=== PATIENT | female | born 1995 | race Caucasian/White ===

== ENCOUNTER 2017-02-12 04:15 | Emergency (ER) | payer OTHER ==
[2017-02-12 04:09] LABS: URINE SOURCE CLEAN CATCH
[2017-02-12 04:11] LABS: URINE APPEARANCE CLEAR; URINE BLOOD NEG (NEG); URINE COLOR YELLOW; URINE GLUCOSE NEG (NORM); URINE KETONE NEG (NEG); URINE LEUKOCYTE ESTERASE NEG (NEG); URINE NITRATE NEG (NEG); URINE PH 5.5 (5-8); URINE PROTEIN NEG (NEG); URINE SPECIFIC GRAVITY >=1.030 (1.003-1.035); URINE UROBILINOGEN 0.2 MG/DL (NORM)
[2017-02-12 04:14] LABS: MICRO INDICATED? NO; URINE BILIRUBIN NEG (NEG)
[~2017-02-12 04:15] MED LIST: ACYCLOVIR PO; AMOXICILLIN500 M1 PO; AUGMENTIN PO; BACTRIM DS TABL1 TA1 PO; BENTYL10 MG PO; CIPRO PO; DICLOFENAC PO; GEODON20 MG PO; NO MEDICATIONS; VIBRAMYCIN100 M1 DOB
[2017-02-13 20:33] LABS: CHLAMYDIA TRACH Not Detected (Not Detected); N GONOR Not Detected (Not Detected)
== END 2017-02-12 04:43 | disposition home or self-care (01) ==
LOC: SED 04:15
PROVIDERS: Emergency Medicine
DX: N72 Inflammatory disease of cervix uteri (principal)
CPT/HCPCS: 81003; 84703; 87491; 87591; 87808; 87905; 96372; 99284; J0696

== ENCOUNTER 2017-05-14 03:14 | Emergency (ER) | payer OTHER ==
[~2017-05-14] VITALS: Ht 162.6 cm; Wt 59.0 kg
--- NOTE | ~2017-05-14 | CR63 ---
[facility]. [facility] A Service of [place] [facility] RADIOLOGY TEXT RESULTS PATIENT: MOLLY SAUCEDO LOCATION: SED : [birth year] UNIT #: [id number] AGE: [address]: Geraldo Vidales MD SEX: F ORDER DR: [id number] [place] [id number] E MR#: [id number] Acc #: [id number] NAME: MOLLY SAUCEDO : 1995 SEX: F STUDY DATE/TIME: 05/14/2017 04:41 UNIT: SED ROOM: STUDY DESCRIPTION: CR Chest 2 View Attending Physician: Geraldo Vidales M.D. Ordering Physician: Geraldo Vidales M.D. Primary Care Physician: John Lewis Aprn MEDICAL IMAGING REPORT This report is preliminary unless electronic signature is present. EXAM Chest x-ray 05/14/2017 at 04:41. INDICATIONS Left side chest pain that started tonight. FINDINGS PA and lateral examination of the chest upright shows a good expansion of the parenchyma with a normal distribution of the pulmonary vascularity. There is no indication of congestion, effusion, infiltrate, tumor, or nodular density. The pleural reflections and diaphragmatic contours are normal. The cardiac silhouette and mediastinal anatomy is within normal limits. IMPRESSION Normal chest. Dictated by... Jace Aguilar Jr., M.D. THIS IS AN ELECTRONICALLY VERIFIED REPORT Jace Aguilar Jr., M.D. at 05/14/2017 8:15 PM RLK/prerna TD: 05/14/2017 12:12 JOB #: [id number] MEDICAL IMAGING REPORT Page 1 of 1
[2017-05-14] MEDS ORDERED: NO MEDICATIONS (03:26)
[2017-05-14 03:55] LABS: URINE SOURCE CLEAN CATCH
[2017-05-14 03:58] LABS: URINE APPEARANCE CLEAR; URINE BILIRUBIN NEG (NEG); URINE BLOOD NEG (NEG); URINE COLOR YELLOW; URINE GLUCOSE NEG (NORM); URINE KETONE NEG (NEG); URINE LEUKOCYTE ESTERASE NEG (NEG); URINE NITRATE NEG (NEG); URINE PH 5.5 (5-8); URINE PROTEIN NEG (NEG); URINE SPECIFIC GRAVITY >=1.030 (1.003-1.035); URINE UROBILINOGEN 0.2 MG/DL (NORM)
[2017-05-14 03:59] LABS: MICRO INDICATED? NO
[2017-05-14 04:02] LABS: BASOPHIL% 0.5 % (0-2.5); EOSINOPHIL# 0.4 X10e3 (0-0.7); EOSINOPHIL% 5.6 % (0.0-7.0); HEMOGLOBIN 13.6 gm/dL (12.0-16.0); LYMPHOCYTE# 1.9 X10e3 (1.0-3.5); LYMPHOCYTE% 28.7 % (17.0-45.0); MEAN CELL VOLUME 89.1 FL (83-96); MEAN CORPUSCULAR HEMOGLOBIN 30.3 PG (28-34); MEAN PLATELET VOLUME 8.1 FL (6.5-11.5); MONOCYTE# 0.6 X10e3 (0-1.0); MONOCYTE% 8.7 % (3.0-12.0); NEUTROPHIL# 3.7 X10e3 (1.5-7.1); NEUTROPHIL% 56.5 % (40-75); PLATELET COUNT 184 X10e3 (140-420); RED BLOOD COUNT 4.49 X10e (3.90-5.30); RED CELL DISTRIBUTION WIDTH 12.3 % (11.0-15.5); WHITE BLOOD COUNT 6.6 X10e3 (4.0-10.5)
[2017-05-14 04:06] LABS: DIFF IND NO
[2017-05-14 04:10] LABS: INR 1.1; PROTHROMBIN TIME (PATIENT) 12.9 SECONDS (9.5-12.4)
[2017-05-14 04:18] LABS: BUN/CREATININE RATIO 22.85; CALCIUM SERUM 9.5 mg/dL (8.4-10.2); CREATININE SERUM 0.7 mg/dL (0.6-1.4); GLOM FILT RATE Estimated 121.3 mL/min (>60); PARTIAL THROMBOPLASTIN TIME 30.1 SECONDS (25.6-38.1); POTASSIUM 3.6 mmol/L (3.5-5.1)
== END 2017-05-14 05:22 | disposition home or self-care (01) ==
LOC: SED 03:14
PROVIDERS: Emergency Medicine
DX: R09.1 Pleurisy (principal)
CPT/HCPCS: 36415; 71020; 80048; 81003; 84703; 85025; 85379; 85610; 85730; 96374; 99283; J1885